=== PATIENT | female | born 1955 | race Caucasian/White ===

== ENCOUNTER 2017-02-15 23:21 | Inpatient (IN) | payer BC ==
[~2017-02-15] VITALS: Ht 175.3 cm; Wt 92.1 kg
[~2017-02-15 23:21] MED LIST: CALCIUM 500 MG1 EACH PO; CRANBERRY 4001 EAC1 PO; IBUPROFEN200 M1 PO; LORATADINE10 M3 PO; MULTIVITAMIN1 EAC2 PO; TYLENOL EXTRA500 MG PO; VIREAD300 MG PO; VITAMIN C1000 MG PO
[2017-02-16 07:31] VITALS: BP 128/78
[2017-02-16 12:20] VITALS: BP 126/79
[2017-02-16 12:23] LABS: HEMATOCRIT 37.5 % (36.0-46.0); MCH 32.4 PG (29.0-34.0); MCHC 32.5 G/DL (30.0-36.0); MCV 99.7 FL (83-99); MEAN PLAT.VOLUME 10.4 uM^3 (9.5-12.4); PLATELET COUNT 201 K/uL (156-360); RBC DIS.WIDTH-CV 13.3 % (11.8-14.6); RBC DIS.WIDTH-SD 48.9 % (39-53); RED BLOOD COUNT 3.76 M/uL (3.80-5.20); WHITE BLOOD COUNT 8.2 K/uL (4.1-10.2)
[2017-02-16 15:54] VITALS: BP 161/77
[2017-02-16 20:16] VITALS: BP 151/71
[2017-02-17 00:24] VITALS: BP 141/87
[2017-02-17 04:20] VITALS: BP 143/84
[2017-02-17 05:51] LABS: HEMATOCRIT 34.1 % (36.0-46.0); MCV 100.3 FL (83-99)
[2017-02-17 06:12] LABS: ANION GAP 4 MEQ/L (2-14); CHLORIDE 104 MEQ/L (99-109); GFR ESTIMATE (CALCULATED) > 59 mL/min/; GLUCOSE 122 mg/dL (70-99); POTASSIUM 4.1 MEQ/L (3.7-5.4); SAMPLE HEMOLYSIS CHECK 0; SAMPLE ICTERIC CHECK 0; SAMPLE LIPEMIA CHECK 0; SODIUM 136 MEQ/L (136-147); UREA NITROGEN (BUN) 15 mg/dL (9-23)
[2017-02-17 08:00] VITALS: BP 131/71
[2017-02-17 11:54] VITALS: BP 145/67
[2017-02-17 15:42] VITALS: BP 156/86
[2017-02-17 20:10] VITALS: BP 173/81
[2017-02-18 00:02] VITALS: BP 134/80
[2017-02-18 04:19] VITALS: BP 149/81
[2017-02-18 06:58] LABS: HEMATOCRIT 33.2 % (36.0-46.0); MCV 98.2 FL (83-99)
[2017-02-18 08:00] VITALS: BP 124/85
[2017-02-18] MEDS ORDERED: TRAMADOL HCL50 MG PO (08:07)
[2017-02-18] MEDS ORDERED: LOVENOX40 MG/0.4 SC (08:07)
[2017-02-18 12:03] VITALS: BP 137/80
== END 2017-02-18 14:06 | DRG 470 ==
LOC: 2SOUTH → ENRESERV 23:21 → 2SOUTH 02-16 06:45 → 3WEST 02-16 12:12 → 2SOUTH 02-16 15:38 → 3WEST 02-18 14:06
PROVIDERS: Orthopaedic Surgery
PROC: 0SRD0J9 Replacement of Left Knee Joint with Synthetic Substitute, Cemented, Open Approach (ICD-10-PCS; principal; 2017-02-16)
DX: M17.12 Unilateral primary osteoarthritis, left knee (principal); K21.9 Gastro-esophageal reflux disease without esophagitis; K74.60 Unspecified cirrhosis of liver; B18.1 Chronic viral hepatitis B without delta-agent; J30.2 Other seasonal allergic rhinitis; F17.210 Nicotine dependence, cigarettes, uncomplicated
CPT/HCPCS: 73560; 80048; 85014; 85018; 85027; 93971; 97530 GO; C1713; J0131; J0690; J1170; J1650; J1885; J2250; J2405; J7030; J7050